=== PATIENT | male | born 2000 | race Caucasian/White ===

== ENCOUNTER 2021-03-13 20:59 | Emergency (ER) | payer MEDICAID, SELFPAY ==
--- NOTE | ~2021-03-13 | XR_ITS ---
EXAMINATION: XR CHEST CLINICAL INFORMATION: Right-sided chest wall pain. COMPARISON: None TECHNIQUE: 2 views of the chest were obtained. FINDINGS: No significant abnormality is noted involving the heart, lungs, mediastinum, bony thorax or soft tissues. XR/XR chest 2V IMPRESSION: Unremarkable examination.
[2021-03-13 21:09] VITALS: BP 115/68; PULSE 90; RESP 20; TEMP 37; O2SAT 100; O2SAT 96; BMI 18.8
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
[2021-03-13] MEDS: Acetaminophen 325 MG TABLET 975 MG PO (22:13)
[2021-03-13] MEDS: Ibuprofen 400 MG TABLET PO (22:14)
[2021-03-13 22:16] VITALS: BP 116/73; PULSE 63; RESP 16; O2SAT 98
== END 2021-03-13 23:18 ==
PROVIDERS: Emergency Provider Student in an Organized Health Care Education/Training Program
DX: M94.0 Chondrocostal junction syndrome [Tietze] (principal); F41.9 Anxiety disorder, unspecified; J45.909 Unspecified asthma, uncomplicated
CPT/HCPCS: 71046; 99283; 99285

== ENCOUNTER 2023-05-01 18:31 | Outpatient (REF) | payer MEDICAID, SELFPAY ==
[2023-05-02 04:13] LABS: CT PCR DETECTED (Not Detect.); NG PCR NOT DETECTED (Not Detect.)
== END 2023-05-01 18:32 | disposition home or self-care (01) ==
LOC: HO.HHCLNP 18:31
PROVIDERS: Visit Provider Emergency Medicine
DX: Z11.3 Encounter for screening for infections with a predominantly sexual mode of transmission (principal)
CPT/HCPCS: 0353U